=== PATIENT | male | born 1995 | race African-American/Black ===

== ENCOUNTER 2018-01-03 02:38 | Emergency (ER) | payer SELFPAY ==
[2018-01-03 02:43] VITALS: BP 137/78; PULSE 84; RESP 15; TEMP 98.2; O2SAT 98
[2018-01-03 03:05] LABS: BILIRUBIN, URINE NEG (NEG); BLOOD, URINE TRACE (NEG); GLUCOSE,URINE NEG (NEG); KETONE, URINE NEG (NEG); NITRITE,URINE NEG (NEG); URINE LEUKOCYTE ESTERASE SMALL (NEG)
[2018-01-03 03:09] LABS: URINE COLOR AMBER (YELLW/STRAW)
[2018-01-03 03:10] LABS: BACTERIA, URINE RARE /hpf; SQUAMOUS EPITHELIAL CELL URINE 0-5 /hpf (0-5); WBC, URINE 100-200 /hpf (0-5); WHITE BLOOD CELL CLUMPS OCC
[2018-01-03 04:30] VITALS: BP 142/85; PULSE 88; RESP 18; TEMP 98.3; O2SAT 98
[2018-01-03] MEDS ORDERED: DOXY100C PO (05:58)
--- NOTE | 2018-01-03 05:58 | PD ---
HPI Chief Complaint: Complaint Time Seen by Provider: 05:40 Travel History International Travel<30 days: No Contact w/Intl Traveler<30days: No Traveled to known affect area: No History of Present Illness HPI The patient is a 22-year-old male that she complained he wants to be checked for STD. The patient states he has a penile discharge for 1 day. He has multiple partners so he does not know which partner he got it from. He has had a tenderness in the left inguinal lymph node for several months. He states he had a cyst on his testicle and was given antibiotics for this but never took the antibiotics, never filled the antibiotics. He denies any skin rash or joint pain. PFSH Past Medical History Medical History: Denies Significant Hx Diminished Hearing: No Tetanus Vaccination: > 5 Years Influenza Vaccination: No ?: Not Past Surgical History Surgical History: No Previous Surgery Social History Alcohol Use: No Tobacco Use: No Substance Use: No Allergies-Medications (Allergen,Severity, Reaction): Coded Allergies: No Known Allergies (Unverified , 01/03/18) Reported Meds & Prescriptions Reported Meds & Active Scripts Active No Active Prescriptions or Reported Medications Review of Systems Except as stated in HPI: all other systems reviewed are Neg Physical Exam Narrative GENERAL: Well-nourished, well-developed patient in slight apparent distress with his penile discharge. His vital signs are normal. SKIN: Focused skin assessment warm/dry. No skin rashes present. HEAD: Normocephalic. EYES: No scleral icterus. No injection or drainage. NECK: Supple, trachea midline. No JVD or lymphadenopathy. CARDIOVASCULAR: Regular rate and rhythm without murmurs, gallops, or rubs. RESPIRATORY: Breath sounds equal bilaterally. No accessory muscle use. GASTROINTESTINAL: Abdomen soft, non-tender, nondistended. No guarding or rebound. MUSCULOSKELETAL: No cyanosis, or edema. No joint swelling or tenderness is present. BACK: Nontender without obvious deformity. No CVA tenderness. GENITOURINARY: Circumcised. Testes descended bilaterally without evidence of rotation. No lesions or erythema. There is a profuse, white urethral discharge. There is also tenderness on the left inguinal lymph node. Data Data Last Documented VS Vital Signs Date Time Temp Pulse Resp B/P (MAP) Pulse Ox O2 Delivery O2 Flow Rate FiO2 01/03/18 02:43 98.2 84 15 137/78 (97 98 Orders Orders Urinalysis - C+S If Indicated (01/03/18 02:53) Urine Culture (01/03/18 03:00) Ed Discharge Order (01/03/18 05:48) Labs Laboratory Tests Test 01/03/18 03:00 Urine Color KEARA Urine Turbidity HAZY Urine pH 6.0 Urine Specific [place] 1.033 Urine Protein NEG mg/dL Urine Glucose (UA) NEG mg/dL Urine Ketones NEG mg/dL Urine Occult Blood TRACE Urine Nitrite NEG Urine Bilirubin NEG Urine Leukocyte Esterase SMALL Urine RBC 4-9 /hpf Urine WBC 100-200 /hpf Urine WBC Clumps OCC Urine Squamous Epithelial Cells 0-5 /hpf Urine Bacteria RARE /hpf Microscopic Urinalysis Comment CULTURE INDICATED MDM Medical Decision Making Medical Screen Exam Complete: Yes Emergency Medical Condition: Yes Medical Record Reviewed: Yes Differential Diagnosis Gonorrhea, nonspecific urethritis, lymphogranuloma venereum, syphilis-unlikely Narrative Course The patient has possible gonorrhea or nonspecific urethritis and possibly both. Because of the tender lymph node which is been going on for several months lymph a granuloma venereum is considered but unlikely. Nevertheless, the patient will be given 2 weeks of doxycycline treatment after his Rocephin shot. Diagnosis Primary Impression: STD (male) Additional Impression: Urethritis, nonspecific Additional Instructions: The antibiotic is one tablet twice daily for 2 weeks. You should follow-up with the health department Med/Other Pt SpecificInfo: Prescription(s) given Scripts Doxycycline Hyclate (Doxycycline Hyclate) 100 Mg Cap 100 MG PO BID for Infection, #28 CAP 0 Refills Prov: Bogdan Grover MD 01/03/18 Disposition: 01 DISCHARGE HOME Condition: Stable Bogdan Grover MD Jan 03, 2018 05:58
[2018-01-03] MEDS ORDERED: DOXYCYCLINE HYCLATE 100 MG CAP PO ONE (06:00)
[2018-01-03] MEDS ORDERED: LIDOCAINE HCL 1% 50 ML VIAL IM ONE (06:15)
[2018-01-03] MEDS ORDERED: LIDOCAINE HCL 1% 30 ML VIAL IM ONE (06:15)
[2018-01-03 06:26] VITALS: BP 125/75; TEMP 98.4
== END 2018-01-03 06:27 | disposition home or self-care (01) ==
LOC: PHED 02:38
DX: A64 Unspecified sexually transmitted disease (principal); N34.2 Other urethritis
CPT/HCPCS: 81001; 87077; 87086; 87185; 96372; 99283; J0696